=== PATIENT | male | born 1990 | race Caucasian/White ===

== ENCOUNTER 2017-11-27 21:59 | Emergency (ER) | payer OTHER, BC ==
[~2017-11-27] VITALS: Ht 193 cm; Wt 92.4 kg
[~2017-11-27 21:59] MED LIST: PREDNISONE10 MG PO
[2017-11-27 23:08] VITALS: BP 132/85
== END 2017-11-27 23:26 | disposition home or self-care (01) ==
LOC: EME 21:59
DX: M54.5 Low back pain (principal); V49.40XA Driver injured in collision with unspecified motor vehicles in traffic accident, initial encounter; Y92.410 Unspecified street and highway as the place of occurrence of the external cause; F17.200 Nicotine dependence, unspecified, uncomplicated
CPT/HCPCS: 99281; 99283